=== PATIENT | female | born 1960 ===

== ENCOUNTER 2016-10-16 19:25 | Emergency (ER) | payer OTHER, SELFPAY ==
[2016-10-16 19:36] VITALS: RESP 18; TEMP 97.5
--- NOTE | 2016-10-16 20:00 | C.PDOC ---
History Of Present Illness 56 yr old female presents to the ER with complaints of right upper eye lid pain and swelling for the past 4 days. Patient states she has been using warm compresses and polytrim eye drops that her PMD prescribed. Patient states the swelling has increased prompting her to come to the ED. Patient reports she had similar symptoms 2 weeks ago but it was on the lower lid and now it is on the upper. Patient denies fever, vision changes, double vision, headache, neck pain , weakness or numbness. Time Seen by Provider: 10/16/16 19:46 Chief Complaint (Nursing): Eye Problem History Per: Patient History/Exam Limitations: no limitations Onset/Duration Of Symptoms: Days (2) Current Symptoms Are (Timing): Still Present Past Medical History Reviewed: Historical Data, Nursing Documentation, Vital Signs Vital Signs: Last Vital Signs Temp 97.5 F L 10/16/16 19:32 Pulse 78 10/16/16 20:27 Resp 18 10/16/16 20:27 BP 124/72 10/16/16 20:27 Pulse Ox 99 10/16/16 21:39 - Medical History PMH: Hypothyroidism Family History: States: No Known Family Hx - Social History Hx Alcohol Use: No Hx Substance Use: No - Immunization History Hx Tetanus Toxoid Vaccination: No Hx Influenza Vaccination: No Hx Pneumococcal Vaccination: No Review Of Systems Except As Marked, All Systems Reviewed And Found Negative. Constitutional: Negative for: Fever Eyes: Positive for: Other ((+) Right upper eyelid pain and swelling ). Negative for: Vision Change Musculoskeletal: Negative for: Neck Pain Neurological: Negative for: Weakness, Numbness, Headache Physical Exam - Physical Exam Appears: Well, Non-toxic, No Acute Distress Skin: Warm, Dry, No Rash Head: Atraumatic, Normacephalic Eye(s): bilateral: PERRL, EOMI, right: Other (Patient has permanent eyeliner. + Swelling and erythema to the right upper eye lid, pointing to the lid margin. No lacrimal duct tenderness or discharge. Conjunctiva is mildly injected. ) Nose: Normal Oral Mucosa: Moist Neck: Normal, Normal ROM, Supple Chest: Symmetrical, No Tenderness Cardiovascular: Rhythm Regular Respiratory: Normal Breath Sounds Extremity: Normal ROM, No Swelling Neurological/Psych: Oriented x3, Normal Speech ED Course And Treatment O2 Sat by Pulse Oximetry: 99 Progress Note: Patient is advised to continue warm compresses. Follow up with optho in 1-2 days for further evaluation. Disposition - Disposition Referrals: Harry Garcia MD [Primary Care Provider] - John De Guzman MD [Staff Provider] - Disposition: HOME/ ROUTINE Disposition Time: 20:07 Condition: STABLE Additional Instructions: Apply warm, not hot, compresses every couple of hours. Follow up with eye doctor in 1-2 days. Return to ER if symptoms persist or worsen. Aplique caliente, no caliente, comprime cada dos horas. Seguimiento con un oftalmlogo en 1-2 [place]. Regrese al ER si los sntomas persisten o empeoran. Prescriptions: Cephalexin [cephalexin] 500 mg PO BID #14 cap Tobramycin 0.3% [Tobrex] 0.5 inch OP TID 7 Days Instructions: Stye (ED) Forms: Work Excuse Print Language: BRUNEIAN - Clinical Impression Clinical Impression: Hordeol[employer] externum - PA / [employer] INST[employer] PV / Resident Statement MD/ has reviewed & agrees with the documentation as recorded. - Scribe Statement The provider has reviewed the documentation as recorded by the Scribe Lidia Mota All medical record entries made by the Scribe were at my direction and personally dictated by me. I have reviewed the chart and agree that the record accurately reflects my personal performance of the history, physical exam, medical decision making, and the department course for this patient. I have also personally directed, reviewed, and agree with the discharge instructions and disposition.
[2016-10-16 20:28] VITALS: BP 124/72; PULSE 78
[2016-10-16 21:34] VITALS: O2SAT 99
== END 2016-10-16 20:27 | disposition home or self-care (01) ==
LOC: SUPCPDRO 19:25 → C.ER 19:25
DX: H00.011 Hordeolum externum right upper eyelid (principal)